=== PATIENT | male | born 2000 | race Caucasian/White ===

== ENCOUNTER 2020-01-19 10:30 | Emergency (ER) | payer OTHER ==
[2020-01-19] MEDS ORDERED: Diphtheria,Pertussis(Acell),Tetanus Vaccine 0.5 ML SDV IM ONE (11:06)
--- NOTE | 2020-01-19 11:09 | EDM.PDOC ---
ED HPI GENERAL MEDICAL PROBLEM - General Chief Complaint: Skin Complaint Stated Complaint: PUNCTURED WITH SCREWDRIVER AT WORK Time Seen by Provider: 01/19/20 11:08 Source of Information: Reports: Patient History Limitations: Reports: No Limitations - History of Present Illness INITIAL COMMENTS - FREE TEXT/NARRATIVE: This 19 yo male patient reports to the ED from work at the [employer] due to a puncture wound in his right hand. The patient reports he was working on getting a lugnut cap out of a socket when he punctured his hand with a screwdriver. The patient does not know when his last Tetanus shot may have been. The patient reports he does not know how deep the screwdriver went into his hand. Onset: Today Duration: Minutes: Location: Reports: Upper Extremity, Right Quality: Reports: Ache Severity: Mild Improves with: Reports: None Worsens with: Reports: None Context: Reports: Other Associated Symptoms: Reports: No Other Symptoms Right Hand Pain Score (Numeric/FACES): 4 - Related Data Allergies Allergy/AdvReac Type Severity Reaction Status Date / Time No Known Allergies Allergy Verified 01/19/20 11:15 ED ROS GENERAL - Review of Systems Review Of Systems: Comprehensive ROS is negative, except as noted in HPI. ED EXAM, SKIN/RASH Exam: See Below Exam Limited By: No Limitations General Appearance: Alert, WD/WN, No Apparent Distress Eye Exam: Bilateral Eye: EOMI, Normal Inspection, PERRL Ears: Normal External Exam, Normal Canal, Hearing Grossly Normal, Normal TMs Nose: Normal Inspection, Normal Mucosa, No Blood Throat/Mouth: Normal Inspection, Normal Lips, Normal Teeth, Normal Gums, Normal Oropharynx, Normal Voice, No Airway Compromise Head: Atraumatic, Normocephalic Neck: Normal Inspection, Supple, Non-Tender, Full Range of Motion Respiratory/Chest: No Respiratory Distress, Lungs Clear, Normal Breath Sounds, No Accessory Muscle Use, Chest Non-Tender Cardiovascular: Normal Peripheral Pulses, Regular Rate, Rhythm, No Edema, No Gallop, No JVD, No Murmur, No Rub GI/Abdominal: Normal Bowel Sounds, Soft, Non-Tender, No Organomegaly, No Distention, No Abnormal Bruit, No Mass (Male) Exam: Deferred Rectal (Males) Exam: Deferred Back Exam: Normal Inspection, Full Range of Motion, NT Extremities: Arm Pain (right thumb pain (puncture wound to the base of his right thumb with no major bleeding)) Neurological: Alert, Oriented, CN II-XII Intact, Normal Cognition, Normal Gait, Normal Reflexes, No Motor/Sensory Deficits Psychiatric: Normal Affect, Normal Mood Skin: Wound/Incision Location, Skin: Upper Extremity, Right Characteristics: Linear Associated features: Tenderness Lymphatic: No Adenopathy ED SKIN PROCEDURES - Laceration/Wound Repair Right Hand Appearance: Subcutaneous Anesthetic Type: Local Local Anesthesia - Lidocaine (Xylocaine): 1% Plain Local Anesthetic Volume: 2cc Skin Prep: Chlorhexidine (Hibiciens), Saline Exploration/Debridement/Repair: Wound Explored, In a Bloodless Field, No Foreign Material Found Closed with: Sutures Lac/Wound length In cm: 1.0 Suture Size: 4-0 # of Sutures: 3 Suture Type: Prolene, Interrupted, Simple Drain Placement: No Sterile Dressing Applied: Nurse Tetanus Status Addressed: Yes Complications: No Course - Vital Signs Last Recorded V/S: Last Vital Signs Temp 36.7 C 01/19/20 11:10 Pulse 86 01/19/20 11:10 Resp 16 01/19/20 11:10 BP 137/83 01/19/20 11:10 Pulse Ox 99 01/19/20 11:10 - Orders/Labs/Meds Orders: Active Orders 24 hr Category Date Time Status Vaccines to be Administered [RC] PER UNIT ROUTINE Care 01/19/20 11:06 Active Meds: Medications Discontinued Medications Generic Name Dose Route Start Last Admin Trade Name Freq PRN Reason Stop Dose Admin Bacitracin 1 dose 01/19/20 12:38 01/19/20 12:42 Bacitracin Oint 1 Gm TOP 01/19/20 12:39 1 dose ONETIME ONE Administration Diphtheria/Tetanus/Acell Pertussis 0.5 ml 01/19/20 11:06 01/19/20 11:39 Adacel IM 01/19/20 11:07 0.5 ml .ONCE ONE Administration Lidocaine HCl 30 ml 01/19/20 12:38 01/19/20 12:42 Xylocaine-Mpf 1% INJECT 01/19/20 12:39 30 ml ONETIME ONE Administration Departure - Departure Time of Disposition: 12:58 Disposition: Home, Self-Care 01 Condition: Fair Clinical Impression: Laceration of right hand Qualifiers: Encounter type: initial encounter Foreign body presence: without foreign body Qualified Code(s): S61.411A - Laceration without foreign body of right hand, initial encounter - Discharge Information *PRESCRIPTION DRUG MONITORING PROGRAM REVIEWED*: Not Applicable *COPY OF PRESCRIPTION DRUG MONITORING REPORT IN PATIENT LAUREN: Not Applicable Instructions: Sutures, [place], or Adhesive Wound Closure, [id number], Sutured Wound Care, [id number] Forms: ED Department Discharge Care Plan Goals: The patient was advised of the examination and x-ray results during the visit. The laceration margins were well approximated during the visit. The patient should keep the area clean and dry over the next 24 hours. The patient should have the sutures removed in 10 - 14 days. If the patient has any additional symptoms or concerns, the patient should either return to the emergency department or follow-up with his primary care facility. Sepsis Event Note (ED) - Focused Exam Vital Signs: Vital Signs Temp Pulse Resp BP Pulse Ox 01/19/20 11:10 36.7 C 86 16 137/83 99 - My Orders Last 24 Hours: My Active Orders 01/19/20 11:06 Vaccines to be Administered [RC] PER UNIT ROUTINE - Assessment/Plan Last 24 Hours: My Active Orders 01/19/20 11:06 Vaccines to be Administered [RC] PER UNIT ROUTINE
--- NOTE | 2020-01-19 12:30 | CR ---
EXAMINATION: Hand Comp Min 3V Rt SEX: Male AGE: 19 years CLINICAL HISTORY: 19-year-old male puncture wound right thumb (proximally). Interpretation (3 views): 1. No sign of foreign body or subcutaneous gas collection. No abnormal inflammatory periostitis right thumb. 2. No fracture or dislocation right thumb or hand. 3. Reactive sclerosis articular endplates films of interphalangeal/DIP joints and fingers suggesting arthritis.? 4. Wrist unremarkable. No fracture, dislocation or arthritic degenerative change. CONCLUSION: Suggestion of early osteoarthritis. Otherwise negative plain film exam right hand.
[2020-01-19] MEDS ORDERED: Lidocaine 1% 30 ML SDV INJECT ONE (12:38)
[2020-01-19] MEDS ORDERED: Bacitracin Oint 1 GM U/D Packet TOP ONE (12:38)
== END 2020-01-19 13:08 | disposition home or self-care (01) ==
LOC: DL.ED 10:30
DX: S61.411A Laceration without foreign body of right hand, initial encounter (principal); Z23 Encounter for immunization; W27.0XXA Contact with workbench tool, initial encounter; Y92.89 Other specified places as the place of occurrence of the external cause; Y99.0 Civilian activity done for income or pay
CPT/HCPCS: 12001; 73130; 90471; 90715; 99282; 99283; J2001